=== PATIENT | male | born 1965 | race African-American/Black ===

== ENCOUNTER 2019-02-16 11:01 | Inpatient (IN) ==
[2019-02-16] MEDS ORDERED: PHENERGAN IM ONE (11:42)
[2019-02-16] MEDS ORDERED: NS 1,000 ML IV ONE (11:42)
[2019-02-16 12:33] LABS: BASO# 0.05 X1000 (0.0-0.2); BASO% 0.6 % (0.0-0.8); EOS# 0.06 X1000 (0.0-0.7); EOS% 0.7 % (0.0-10.0); HEMATOCRIT 45.8 % (42.0-52.0); HEMOGLOBIN 16.4 g/dL (14.0-18.0); IMM GRAN# 0.02 X1000 (0.0-0.04); IMM GRAN% 0.2 % (0.0-0.5); LYMPH# 1.97 X1000 (1.2-3.4); LYMPH% 22.2 % (20.5-51.1); MCH 32.2 PG (27-31); MCHC 35.8 g/dL (33-37); MONO# 0.92 X1000 (0.11-0.59); MONO% 10.3 % (1.7-9.3); MPV 9.7 FL (7.4-10.4); NEUT# 5.87 X1000 (1.4-6.5); PLT 226 X1000 (130-400); RBC 5.09 XMIL (4.7-6.1); RDW 12.6 % (11.5-14.5); WBC 8.89 X1000 (4.8-10.8)
[2019-02-16 12:34] LABS: URINE SOURCE VOIDED
[2019-02-16 12:47] LABS: BILIRUBIN URINE NEGATIVE (NEGATIVE); BLOOD URINE TRACE (NEGATIVE); COLOR YELLOW; GLUCOSE URINE NEGATIVE (NEGATIVE); KETONE URINE 20 mg/dL (NEGATIVE); LEUKOCYTES URINE NEGATIVE (NEGATIVE); NITRITE URINE NEGATIVE (NEGATIVE); PH URINE 6.5; PROTEIN URINE 50 mg/dL (NEGATIVE); SP GRAVITY URINE 1.035; TURBIDITY URINE CLEAR (CLEAR); UROBILINOGEN URINE 3 mg/dL (NORMAL)
[2019-02-16 12:50] LABS: UR EPITHELIAL CELLS <10 /HPF (<10); URINE BACTERIA NEGATIVE /HPF; URINE RBC <10 /HPF (<10); URINE WBC <10 /HPF (<10)
[2019-02-16 12:56] LABS: ALB/GLOB RATIO 1.4; ALBUMIN 4.6 g/dL (3.5-5.0); CALCIUM 9.8 mg/dL (8.8-10.2); CREATININE 2.2 mg/dL (0.7-1.2); POTASSIUM 4.1 mmol/L (3.5-5.1); TOTAL BILIRUBIN 0.57 mg/dL (0.20-1.00)
[2019-02-16 12:57] LABS: UR AMPHETAMINES QUAL NONE DETECTED (NONE DETECT); UR BARBITUATES QUAL NONE DETECTED (NONE DETECT); UR BENZODIAZEPIN QUAL NONE DETECTED (NONE DETECT); UR CANNABINOIDS QUAL PRESUMPTIVE POSITIVE (NONE DETECT); UR COCAINE QUAL PRESUMPTIVE POSITIVE (NONE DETECT); UR METHADONE QUAL NONE DETECTED (NONE DETECT); UR OPIATES QUAL NONE DETECTED (NONE DETECT); UR OXYCODONE QUAL NONE DETECTED (NONE DETECT); UR PCP QUAL NONE DETECTED (NONE DETECT)
--- NOTE | 2019-02-16 13:29 | PROVIDER DOCUMENTATION ---
This chart was entered by Sen Deleon Scribe, acting as scribe for Alpesh Brunson MD. HPI-Abdominal Pain/GI Problem - General Chief Complaint: Chest Pain Stated Complaint: CHEST PAIN,ULCERS,VOMITING Time Seen by Provider: 02/16/19 11:36 Source: patient Allergies/Adverse Reactions: Patient Allergies Allergy/AdvReac Type Severity Reaction Status Date / Time No Known Allergies Allergy Verified 10/12/18 09:40 Home Medications: Home Medication List Medication Instructions Recorded Confirmed Last Taken Type Gabapentin [Neurontin] 300 mg PO DAILY 04/30/18 10/12/18 10/05/18 History Hydralazine HCl 100 mg PO TID 04/30/18 10/12/18 10/05/18 History Pantoprazole [Protonix] 40 mg PO BID #60 tab 05/01/18 10/12/18 06/25/18 22:00 Rx Doxycycline 100 mg PO BID 7 Days #14 tab 10/12/18 Unknown Rx Omeprazole [Prilosec] 40 mg PO DAILY #14 capsule. 10/12/18 Unknown Rx Promethazine [Phenergan] 25 mg PO Q6H PRN PRN #20 tab 10/12/18 Unknown Rx Ondansetron HCl [Zofran] 8 mg PO TID PRN #21 tab 02/14/19 Unknown Rx - History of Present Illness-ABD Nature of Presenting Problems: Pt is a 53 y/o M presents to the ED with N/V for a few days and reports his chest has started to hurt today with some constipation for a couple days. He reports of a AAA repair. Abdominal Pain Onset Location: reports: LUQ Pain Radiation: reports: no radiation Quality of Pain: reports: aching Severity in ED: reports: moderate Onset/Duration: reports: 3 days ago Timing: reports: still present Activities at Onset: reports: none Exposure to sick contacts?: No Modifying Factors: improves with: nothing Associated Symptoms: reports: chest pain, constipation, nausea, vomiting. denies: cough, diaphoresis, diarrhea, fever/chills, loss of appetite, sinus congestion/drainage, shortness of breath Last BM: 3 days ago Review of Systems - Adult - REVIEW OF SYSTEMS - ADULT Constitutional: denies: chills, fever Eyes: reports: no symptoms reported Ears, Nose, Mouth & Throat: denies: ear pain, throat pain Cardiovascular: reports: chest pain. denies: edema, palpitations Respiratory: denies: cough, shortness of breath, wheezing Gastrointestinal: reports: abdominal pain, constipation, nausea, vomiting. denies: diarrhea Genitourinary: denies: dysuria, discharge Musculoskeletal: denies: back pain, neck pain Integumentary: reports: no symptoms reported Neurological: denies: dizziness/vertigo, headache/migraines Psychiatric: reports: no symptoms reported Endocrine: reports: no symptoms reported Hematologic/Lymphatic: reports: no symptoms reported Allergic/Immunologic: reports: no symptoms reported All Other Systems: Reviewed and Negative Past History - Adult - PAST MEDICAL HISTORY-ADULT Review of Records: reports: Old Records Reviewed, Nursing Assessment Review, Medications Reviewed Major Childhood Illnesses: reports: denies history Cardiovascular: reports: denies history Respiratory: reports: denies history Gastrointestinal: reports: denies history Obstetrical/Gynecological: reports: denies history Genitourinary: reports: denies history Musculoskeletal: reports: denies history Neurological: reports: denies history Psychiatric: reports: denies history Endocrine/Immune: reports: denies history Other Conditions: reports: denies history - PRIOR SURGERIES/PROCEDURES Surgical/Procedure History: reports: none - IMMUNIZATION STATUS Childhood Immunizations: See Nurse Assessment Flu Vaccine: See Nurse Assessment - FAMILY HISTORY Family History: reviewed, not pertinent - SOCIAL HISTORY Smoking: cigarettes, less than 1 pack/day Substance Use: alcohol Living Situation: family Physical Exam-General - PHYSICAL EXAM-ADULT Initial Vital Signs Reviewed: Yes - CONSTITUTIONAL General Appearance: alert, no apparent distress - EYES Eyes: PERRL/EOMI, pink conjunctivae - HEAD, EARS, NOSE, MOUTH & THROAT HENMT: moist mucous membranes, normal ENT inspection - NECK Neck: non-tender, full range of motion - RESPIRATORY Respiratory: no pleuratic chest pain, no respiratory distress, no accessory muscle use, wheezing (Left upper) - CARDIOVASCULAR Cardiovascular: normal peripheral pulses, regular rate, rhythm - GASTROINTESTINAL (ABDOMEN) Abdominal Exam: normal bowel sounds, soft, tenderness (LUQ), other (well healed abdominal scar). negative: distended, guarding, rebound - MUSCULOSKELETAL Back Exam: normal inspection, no CVA tenderness, no vertebral tenderness Extremity: normal range of motion, non-tender, normal gait, normal inspection, no pedal edema - SKIN Integumentary: normal color, normal turgor, warm/dry - NEUROLOGIC Neurologic: grossly normal, no motor/sensory deficits - PSYCHIATRIC Psych/Mental Status: normal mood/affect, normal thought content, normal thought process, oriented x 3 Progress - PLAN OF CARE/RESULTS Progress/Plan/Lab Results: Vital Signs - 8 hr 02/16/19 11:08 Pulse Rate 71 Respiratory Rate 22 Blood Pressure 142/98 O2 Sat by Pulse Oximetry 100 Result Diagrams: 02/16/19 12:12 02/16/19 12:12 - EKG 1 Time of EKG reading by physician:: 11:12 EKG Read and Signed by:: Alpesh Brunson EKG Interpretation (*Must complete 3 of following elements*): Abnormal Rate: 65 Rhythm: NSR with sinus arrhythmia [place]: left QRS: RBB (incomplete) Comments: pulmonary disease pattern - CONSULTS/PCP/HOSPITALIST Notification #1 *Consult/PCP/Hospitalist*: - Hospitalist - Spoke with Summer Time Discussed: 13:24 Reason/Comments: admission Consult Disposition: Will see in ED Departure - Departure Date of Disposition Decision: 02/16/19 Time of Disposition Decision: 13:24 DIAGNOSIS: Chest pain, Substance abuse, Renal insufficiency, Vomiting, CKD (chronic kidney disease) Disposition: ADMITTED INPATIENT Certified Medical Emergency: Emergent Condition: Fair Referrals and Follow-Ups: Kanwal Ross MD [Primary Care Provider] - - Critical Care Note This patient required my direct & personal management of CC.: No Attestation - Physician/ HOSSEIN Attestation Patient care was provided by Advanced Practice Provider:: No The physician spent face to face time with patient:: Yes Advanced Practice Provider documentation review:: Supervising physician onsite and consulted in the evaluation and care of this patient. The physician did have a face to face encounter with the patient. This chart was documented by the indicated scribe, (Sen Deleon Scribe) and accurately reflects the services I performed and decisions made by me, Alpesh Brunson MD, as attested by the provider's signature.
[2019-02-16] MEDS ORDERED: ZOFRAN IV ONE (14:40)
[2019-02-16] MEDS ORDERED: CARAFATE LIQUID PO ONE (14:40)
--- NOTE | 2019-02-16 14:51 | Diag Imaging Result Doc PS360 ---
EXAM: CT ABDOMEN/PELVIS W/O CONTRAST INDICATION: abdo pain, hx TECHNIQUE: This exam was performed using automated exposure control, adjustment of mA or kV according to patient size, and/or use of iterative reconstruction technique. COMPARISON: 04/28/2018 FINDINGS: There is stable mild scarring at the periphery of the left lung base. The left upper quadrant lateral ventral abdominal wall hernia that was seen on the previous study is much less prominent and may have been repaired during the interval. There is stable chronic fat opacification at the site of the hernia which probably represents scarring. The liver, gallbladder, spleen, pancreas, and adrenal glands are unremarkable. The left kidney is markedly atrophic. The right kidney is unremarkable. The urinary bladder is unremarkable. The appendix is normal. There is no focal bowel wall thickening and no evidence of bowel obstruction. The remainder of the GI tract is essentially unremarkable. There is moderate atherosclerotic calcification at the distal aorta. There are several metallic clips adjacent to the infrarenal aorta. There is no evidence of aortic aneurysm. No free abdominal gas or free fluid is identified. IMPRESSION: 1.Left upper quadrant lateral ventricle abdominal wall hernia containing only fat is much less prominent than the previous study suggesting possible interval repair. Please correlate with surgical history. 2.No evidence of recurrent abdominal aortic aneurysm. 3.Other incidental/nonacute findings detailed above. No definite acute pathology by CT. Electronically signed by Angel Guzmán 02/16/2019 2:49 PM
[2019-02-16] MEDS ORDERED: ZOFRAN IV PRN (15:02)
[2019-02-16] MEDS ORDERED: TYLENOL PO PRN (15:02)
[2019-02-16] MEDS ORDERED: PROTONIX IV ONE (15:11)
[2019-02-16] MEDS ORDERED: SODIUM CHLORIDE 0.9% INJ ONE (15:11)
[2019-02-16] MEDS: NS 1,000 ML IV SCH (16:27)
[2019-02-16 17:08] LABS: AMYLASE 111 U/L (20-200); LIPASE 28 U/L (13-60)
[2019-02-16 17:12] LABS: HEMOGLOBIN A1C 5.8 % (4.8-6.0)
--- NOTE | 2019-02-16 17:25 | Diag Imaging Result Doc PS360 ---
EXAM: CHEST-PORTABLE INDICATION: dyspnea TECHNIQUE: One view COMPARISON: 02/13/2019 FINDINGS: The lungs are grossly clear. There is no discrete pleural fluid collection or pneumothorax. The cardiomediastinal silhouette and central vasculature are grossly unremarkable. IMPRESSION: No evidence of acute pathology by plain radiograph. Electronically signed by Angel Guzmán 02/16/2019 5:22 PM
[2019-02-16] MEDS ORDERED: DULCOLAX PR SCH (21:00)
[2019-02-16] MEDS: DUONEB (A & A) INH SCH (21:45)
[2019-02-16] MEDS: MIRALAX PO SCH (22:55)
[2019-02-17] MEDS: DUONEB (A & A) INH SCH ×2 (03:40→08:09)
[2019-02-17] MEDS: NS 1,000 ML IV SCH (05:27)
[2019-02-17] MEDS: PROTONIX PO SCH ×2 (05:27→06:14)
[2019-02-17 07:35] LABS: BASO# 0.04 X1000 (0.0-0.2); BASO% 0.4 % (0.0-0.8); EOS# 0.18 X1000 (0.0-0.7); EOS% 1.9 % (0.0-10.0); HEMATOCRIT 43.6 % (42.0-52.0); HEMOGLOBIN 14.9 g/dL (14.0-18.0); LYMPH# 3.47 X1000 (1.2-3.4); LYMPH% 37.5 % (20.5-51.1); MCH 31.6 PG (27-31); MCHC 34.2 g/dL (33-37); MCV 92.4 FL (81-99); MONO# 1.05 X1000 (0.11-0.59); MONO% 11.3 % (1.7-9.3); MPV 9.6 FL (7.4-10.4); NEUT# 4.52 X1000 (1.4-6.5); NEUT% 48.9 % (42.2-75.2); PLT 213 X1000 (130-400); RBC 4.72 XMIL (4.7-6.1); RDW 12.7 % (11.5-14.5); WBC 9.26 X1000 (4.8-10.8)
[2019-02-17 07:57] LABS: ALB/GLOB RATIO 1.2; ALBUMIN 3.8 g/dL (3.5-5.0); CALCIUM 9.2 mg/dL (8.8-10.2); CREATININE 1.9 mg/dL (0.7-1.2); MAGNESIUM 2.1 mg/dL (1.5-2.7); POTASSIUM 3.7 mmol/L (3.5-5.1); TOTAL BILIRUBIN 0.61 mg/dL (0.20-1.00); TOTAL PROTEIN 6.9 g/dL (6.3-8.3)
[2019-02-17 07:58] LABS: CHOLESTEROL 117 mg/dL (0-200); HDL 42 mg/dL (35-55); LDL 56 mg/dL; TRIGLYCERIDES 96 mg/dL (39-160); VLDL 19 mg/dL
[2019-02-17 08:23] LABS: CK INDEX 1.2 (0.0-2.5); CK-MB 3.14 ng/mL (0.0-5.0)
--- NOTE | 2019-02-17 08:43 | HISTORY AND PHYSICAL ---
PRIMARY CARE PHYSICIAN: The patient states that he used to see DR. Reyes, but he currently has no primary care physician at this time. CHIEF COMPLAINT: Nausea and vomiting times 2 to 3 days. HISTORY OF THE PRESENT ILLNESS: This is a 53-year-old male, who is lying in ER stretcher in somewhat acute distress, vomiting while I am in the room. States that he started 2-3 days ago with vomiting and lots of nausea. States that he came to the ER on . They performed an abdominal x-ray, gave him some Protonix, and discharged him home. The patient states that he has continued to have nausea and vomiting, some dizziness. He has been coughing up some yellow thick sputum. Denies any fever. States that he has had some chills. The patient states that he has not had a bowel movement since Sunday. The abdominal x-ray done in the ER on 02/13/2019 showed that there was some stool in the rectum, and the patient states he has not had any bleeding when he vomited or any blood in his stool on Sunday. The patient is positive for peptic ulcer disease that was diagnosed several years back when he had an EGD in [place]. The patient in 2018 also had AAA repair and subsequently had to receive dialysis for several months after his AAA repair. Laboratory findings today in the ER show creatinine of 2.2. CT of the abdomen and pelvis shows a repair of an abdominal hernia. Does not show any abdominal aortic aneurysm, and no other acute pathology noted. Urine drug screen was done, and patient was positive for marijuana and cocaine. The patient does admit to using marijuana and cocaine. Abdomen is tender to the touch. Bowel sounds are present. The patient is actively vomiting while I am in the room. This is mostly a mucus type vomit. Did not notice any bile or anything in the vomit. There are audible wheezes noted throughout all lung amato. The patient denies any history of COPD or asthma or emphysema. The patient does state that he does smoke occasionally 3 or 4 cigarettes a week. There are no other pertinent findings at this time. PAST MEDICAL HISTORY: Peptic ulcer disease, history of drug abuse, GERD, aneurysm repair, and hernia repair. PAST SURGICAL HISTORY: Aneurysm repair at [facility] in 2017 where he subsequently went into acute kidney failure and had to receive dialysis for several months post repair, hernia repair, EGD, and colonoscopy. FAMILY HISTORY: Not specific. SOCIAL HISTORY: The patient lives in [place] with his . States he does smoke 2 to 3 cigarettes a day . He is positive for cocaine and marijuana abuse. Patient does admit to this use. Denies any alcohol abuse. Patient does state occasionally he does drink a beer, but not daily. ALLERGIES: No known drug allergies. MEDICATIONS: The patient states he does take Protonix and aspirin. There is no medication reconciliation done in the computer. Unable to see dosages. DIAGNOSTIC STUDIES: White blood cell count 8.89, hemoglobin 16.4, hematocrit 45.8, platelet count 226,000. Sodium 136, potassium 4.1, chloride 97, BUN 19, creatinine 2.2, GFR is 38, glucose is 139, total bilirubin is 0.57, AST is 32, ALT is 27, alkaline phosphatase is 98. Troponin 0.01. Urinalysis is negative except for some protein and ketones. Urine toxicology is positive for cocaine and cannabinoids. Abdominal x-ray done on 02/13/2019 shows some stool in the rectum. The stomach and bowel are not distended. There is blunting of the left costophrenic angle, which has not been changed and is presumably due to fibrosis. CT of the abdomen and pelvis shows left upper quadrant, left ventricle, abdominal wall hernia containing only fat and much less prominent than the previous study suggesting interval repair. No evidence of recurrent abdominal aortic aneurysm. PHYSICAL EXAMINATION: VITAL SIGNS: Pulse rate 71, respiratory rate 22, blood pressure 142/98, the patient is saturating 100% on room air. GENERAL: This is a 53-year-old male who is lying in the ER stretcher in somewhat acute distress from vomiting of mucus while I am in the room. He is able to answer questions appropriately. Keeps having to thrash around in the bed and states he is hurting and having nausea. HEENT: Atraumatic, normocephalic. Pupils equal, round, and reactive to light. Mucous membranes are dry. No dentition noted. NECK: Supple. No lymphadenopathy. Trachea is midline. No JVD. CARDIOVASCULAR: Regular rate and rhythm. No murmurs, gallops, or rubs. RESPIRATORY: Lungs sounds were noted to have wheezing all throughout. Equal chest expansion. Respirations are nonlabored. There is no accessory muscle usage. GASTROINTESTINAL: Abdomen is soft and tender to palpation. Bowel sounds are present. NEUROLOGICAL: The patient is awake, alert, and oriented, able to follow all commands. Cranial nerves intact. MUSCULOSKELETAL: Full distal strength noted. No deformities or abnormalities. EXTREMITIES: No clubbing or cyanosis or edema noted. DP and PT pulses are present and palpable. SKIN: Warm, dry, intact. No rashes or bruises. There is a scar noted to the lower left leg. The patient states this is from his aorta repair. IMPRESSION: 1. Nausea and vomiting and abdominal pain. 2. Peptic ulcer disease. 3. Abdominal aortic aneurysm repair, 2018. 4. Drug abuse. 5. Nicotine dependence. PLAN: We will admit this patient to the medical floor. Place patient on Protonix and IV fluids for possible dehydration. Start the patient on Zofran IV for nausea. We will provide education on smoking cessation and cessation of drug abuse. We will perform chest x-ray and start the patient on breathing treatments every 4 hours. We will monitor the patient for signs and symptoms of infection and draw a.m. labs. Dictated by MALCOLM Kurtz for Sohan Hearn MD cc: Sohan Hearn MD
[2019-02-17 08:50] LABS: LYMPHS 32 % (21-51); MONO 12 % (1-9); SEGS 48 % (42-75)
[2019-02-17 08:52] LABS: HYPOCHROM 1+
[2019-02-17] MEDS ORDERED: ASPIRIN PO SCH (09:00)
--- NOTE | 2019-02-17 09:52 | EKG Report ---
Test Performed on : 02/16/2019 11:12:26 AM Test Reason : ED. NO EKG ORDER FOR MUSE Blood Pressure : / mmHG Vent. Rate : 065 BPM Atrial Rate : 065 BPM P-R Int : 152 ms QRS Dur : 094 ms QT Int : 380 ms P-R-T Axes : 080 -55 041 degrees QTc Int : 395 ms Normal sinus rhythm. with sinus arrhythmia. Left axis deviation Pulmonary disease pattern Incomplete right bundle branch block Abnormal ECG When compared with ECG of 13-FEB-2019 20:48, (Unconfirmed) Non-specific change in ST segment in Lateral leads T wave amplitude has decreased in Anterior leads Nonspecific T wave abnormality no longer evident in Lateral leads Unconfirmed Result
[2019-02-17] MEDS: MIRALAX PO SCH (09:55)
[2019-02-17 12:43] VITALS: BP 121/75
--- NOTE | 2019-02-18 13:45 | DISCHARGE SUMMARY ---
ADMISSION DATE: 02/16/2019 DISCHARGE DATE: 02/17/2019 DISCHARGE DIAGNOSES: 1. Nausea and vomiting resolved. 2. Abdominal pain resolved. 3. Peptic ulcer disease. 4. Abdominal aortic aneurysm repair in 2018. 5. Drug abuse. 6. Nicotine dependence. PROCEDURES: Abdomen and pelvis CT showed left upper quadrant lateral ventricle abdominal wall hernia containing only fat. No evidence of recurrent abdominal aortic aneurysm. X-ray done yesterday showed no evidence of acute pathology. HOSPITAL COURSE: This is a 53-year-old male, who presents to the emergency department complaining of vomiting and abdominal pain. He reports that pain started 3 days ago. He was admitted to the hospital. He was provided Protonix IV. We have done so far a CT of the abdomen and pelvis where left upper quadrant lateral ventricle abdominal wall hernia containing only fat. No evidence of recurrent abdominal aortic aneurysm. So patient was admitted to the hospital. He reports that for the last 2 to 3 months he has not been taking his omeprazole. He was taking omeprazole 40 mg b.i.d. for an ulcer but he is not taking anything because he ran out of this medication. We have restarted that medication here and next day he was feeling much better. He is going to be discharged in stable condition. He is recommended to go and see his primary care physician. DISCHARGE PHYSICAL EXAMINATION: Vital signs: Temperature 98.1 degrees, heart rate 64, respiratory rate 18, blood pressure 121/75. O2 saturation 100% on room air. General: This is a 53-year-old female lying in bed, in no acute distress. Cardiovascular: S1, S2 heard. No murmurs, gallops, or rubs. Regular rate and rhythm. Respiratory: Clear bilaterally to auscultation. No work of breathing or using accessory muscles. Abdomen: Soft, nontender to palpation. Bowel sounds present. No organomegaly. Extremities: No clubbing, cyanosis, or edema. Peripheral pulses present in both legs. Neurological: Patient alert and oriented x3. Moves 4 extremities. DISCHARGE DISPOSITION: 1. Home to self-care. 2. Medications: omeprazole 40 mg p.o. daily. DISCHARGE DISPOSITION: Follow up with primary care doctor in a week. cc: Tarik Pinedo MD
== END 2019-02-17 14:22 | disposition home or self-care (01) | DRG 384 ==
LOC: ED 11:01 → 3N 11:01 → SUATTDRO 16:29 → OBSVTOIN 16:29
PROVIDERS: ATTEND Internal Medicine
CPT/HCPCS: 71010; 71045; 74176; 80053; 80061; 80101; 80301; 80307; 80324; 80345; 80346; 80353; 80358; 80361; 80365; 81001; 82150; 82550; 82553; 83036; 83690; 83735; 83992; 84484; 85025; 93005; 94640; 94761; 96361; 96372; 96374; 96375; 99285; A9270; C9113; G0431; G0434; G0479; G0480; J2405; J2550; J7030; S0164

== ENCOUNTER 2019-10-06 18:51 | Inpatient (IN) ==
[2019-10-06 21:19] LABS: URINE SOURCE CLEAN CATCH
[2019-10-06 21:32] LABS: BILIRUBIN URINE NEGATIVE (NEGATIVE); BLOOD URINE SMALL (NEGATIVE); COLOR YELLOW; GLUCOSE URINE NEGATIVE (NEGATIVE); KETONE URINE 40 mg/dL (NEGATIVE); LEUKOCYTES URINE NEGATIVE (NEGATIVE); NITRITE URINE NEGATIVE (NEGATIVE); PH URINE 8.5; PROTEIN URINE 200 mg/dL (NEGATIVE); SP GRAVITY URINE 1.037; TURBIDITY URINE CLEAR (CLEAR); UROBILINOGEN URINE NORMAL (NORMAL)
[2019-10-06 21:39] LABS: UR EPITHELIAL CELLS <10 /HPF (<10); URINE BACTERIA NEGATIVE /HPF; URINE CASTS NONE SEEN; URINE CRYSTALS NONE SEEN; URINE RBC <10 /HPF (<10); URINE SMALL ROUND CELLS NONE SEEN; URINE WBC <10 /HPF (<10); URINE YEAST NONE SEEN
[2019-10-06 21:39] LABS: BASO# 0.08 X1000 (0.0-0.2); BASO% 0.4 % (0.0-0.8); EOS# 0.01 X1000 (0.0-0.7); EOS% 0.1 % (0.0-10.0); HEMATOCRIT 44.2 % (42.0-52.0); HEMOGLOBIN 15.1 g/dL (14.0-18.0); IMM GRAN# 0.08 X1000 (0.0-0.04); IMM GRAN% 0.4 % (0.0-0.5); LYMPH# 1.37 X1000 (1.2-3.4); MCH 31.6 PG (27-31); MCHC 34.2 g/dL (33-37); MCV 92.5 FL (81-99); MONO# 1.16 X1000 (0.11-0.59); MONO% 5.9 % (1.7-9.3); MPV 9.9 FL (7.4-10.4); NEUT# 16.96 X1000 (1.4-6.5); NEUT% 86.2 % (42.2-75.2); PLT 239 X1000 (130-400); RBC 4.78 XMIL (4.7-6.1); RDW 12.9 % (11.5-14.5); WBC 19.66 X1000 (4.8-10.8)
[2019-10-06 21:53] LABS: ALB/GLOB RATIO 0.7; ALBUMIN 3.8 g/dL (3.5-5.0); CALCIUM 10.3 mg/dL (8.8-10.2); CREATININE 1.9 mg/dL (0.7-1.2); POTASSIUM 3.5 mmol/L (3.5-5.1); TOTAL BILIRUBIN 0.64 mg/dL (0.20-1.00)
[2019-10-06] MEDS ORDERED: ZOFRAN ODT PO ONE (22:16)
[2019-10-06] MEDS ORDERED: ZOFRAN ODT ONE (22:21)
[2019-10-06] MEDS ORDERED: ZOSYN 4.5 GM in NS 100 ML IV ONE (22:33)
[2019-10-06] MEDS ORDERED: NS 1,000 ML IV ONE ×2 (22:40→22:41)
[2019-10-06] MEDS ORDERED: ZOFRAN PO ONE (23:56)
--- NOTE | 2019-10-07 01:16 | PROVIDER DOCUMENTATION ---
This chart was entered by Daniela Hartmann Scribe, acting as scribe for Bandar Rocha MD. HPI-General Adult - General Chief Complaint: Nausea/Vomiting Stated Complaint: N/V Time Seen by Provider: 10/06/19 22:08 Source: patient Allergies/Adverse Reactions: Patient Allergies Allergy/AdvReac Type Severity Reaction Status Date / Time No Known Allergies Allergy Verified 10/07/19 00:51 Home Medications: Home Medication List Medication Instructions Recorded Confirmed Last Taken Type Gabapentin [Neurontin] 300 mg PO DAILY PRN 04/30/18 10/07/19 08/11/19 History Albuterol Sulfate Inhaler 2 puff INH Q4H PRN PRN #1 inhaler 02/17/19 10/07/19 08/17/19 Rx [Ventolin Hfa] Cetirizine [Zyrtec] 10 mg PO DAILY #20 tab 07/01/19 10/07/19 08/16/19 Rx Cyclobenzaprine [Flexeril] 10 mg PO TID #20 tab 07/01/19 10/07/19 08/11/19 Rx Fluticasone 50 Mcg Nasal [place] 1 spray INTRANASAL DAILY #1 bottle 08/18/19 10/07/19 Unknown Rx [Flonase] - History of Present Illness -Gen Adult Nature of Presenting Problems: pt is a 53 yr old male presenting with 1 day complaint of nausea, vomiting, abdominal pain and back pain. pt was seen here yesterday and dx as pneumonia. pt denies any shortness of breath, cough or chest pain. pt is actively vomiting during exam Location of Pain/Injury: reports: abdomen, back Pain Radiation: reports: no radiation Quality of Pain: reports: aching Severity: reports: moderate Onset/Duration: reports: this morning (n/v) Timing: reports: still present Context/Activities at Onset: reports: rest Modifying Factors: improves with: nothing Associated Symptoms: reports: back/neck pain, nausea, vomiting. denies: chest pain, diarrhea, fever/chills, genitourinary problems, shortness of breath Similar Symptoms Previously?: Yes Recently seen or treated by another doctor?: Yes (seen here 1 day ago, dx as PNA) Review of Systems - Adult - REVIEW OF SYSTEMS - ADULT Constitutional: reports: fatique. denies: chills, fever Eyes: reports: no symptoms reported Ears, Nose, Mouth & Throat: denies: ear pain, sinus problem, throat pain Cardiovascular: denies: chest pain, palpitations, syncope Respiratory: denies: cough, shortness of breath Gastrointestinal: reports: abdominal pain, nausea, vomiting. denies: diarrhea Genitourinary: reports: no symptoms reported Musculoskeletal: reports: back pain Integumentary: reports: no symptoms reported Neurological: denies: dizziness/vertigo, headache/migraines Psychiatric: reports: no symptoms reported Endocrine: reports: no symptoms reported Hematologic/Lymphatic: reports: no symptoms reported Allergic/Immunologic: reports: no symptoms reported All Other Systems: Reviewed and Negative Past History - Adult - PAST MEDICAL HISTORY-ADULT Review of Records: reports: Old Records Reviewed, Nursing Assessment Review, Medications Reviewed, Social history reviewed & non-contributory. Major Childhood Illnesses: reports: denies history Cardiovascular: reports: HTN Respiratory: reports: denies history Gastrointestinal: reports: denies history Obstetrical/Gynecological: reports: denies history Genitourinary: reports: dialysis (no longer on dialysis, hx of renal insufficiency) Musculoskeletal: reports: denies history Neurological: reports: denies history Psychiatric: reports: denies history Endocrine/Immune: reports: denies history Other Conditions: reports: denies history - PRIOR SURGERIES/PROCEDURES Surgical/Procedure History: reports: none - IMMUNIZATION STATUS Childhood Immunizations: See Nurse Assessment Flu Vaccine: See Nurse Assessment - FAMILY HISTORY Family History: reviewed, not pertinent - SOCIAL HISTORY Smoking: cigarettes Provider spent 3-5 mins advising pt. on dangers of tobacco.: Discussed manners to quit use, and f/u contacts for add'l counseling. Substance Use: alcohol Alcohol Use Frequency: occasionally Living Situation: family Physical Exam-General - PHYSICAL EXAM-ADULT Initial Vital Signs Reviewed: Yes - CONSTITUTIONAL General Appearance: appears well, alert, no apparent distress - EYES Eyes: PERRL/EOMI - HEAD, EARS, NOSE, MOUTH & THROAT HENMT: normocephalic/atraumatic, moist mucous membranes, normal ENT inspection - NECK Neck: non-tender, full range of motion, supple, normal inspection - RESPIRATORY Respiratory: chest non-tender, lungs clear, normal breath sounds, no respiratory distress, no accessory muscle use - CARDIOVASCULAR Cardiovascular: normal peripheral pulses, regular rate, rhythm, no edema - GASTROINTESTINAL (ABDOMEN) Abdominal Exam: normal bowel sounds, non tender, soft - LYMPHATIC Lymphatic: no adenopathy - MUSCULOSKELETAL Back Exam: normal inspection, no CVA tenderness, no vertebral tenderness Extremity: normal range of motion, non-tender, normal gait, normal inspection - SKIN Integumentary: normal color, normal turgor, warm/dry - NEUROLOGIC Neurologic: grossly normal, no motor/sensory deficits - PSYCHIATRIC Psych/Mental Status: normal mood/affect, normal thought content, normal thought process, oriented x 3 Progress - PLAN OF CARE/RESULTS Progress/Plan/Lab Results: Vital Signs - 8 hr 10/06/19 19:18 10/06/19 21:04 Temperature 98.0 F 98.3 F Pulse Rate 87 83 Respiratory Rate 18 20 Blood Pressure 141/85 156/90 O2 Sat by Pulse Oximetry 99 100 Laboratory Results - last 24 hr 10/06/19 10/06/19 10/06/19 21:02 21:02 21:06 WBC 19.66 H RBC 4.78 Hgb 15.1 Hct 44.2 MCV 92.5 MCH 31.6 H MCHC 34.2 RDW Std Deviation 12.9 Plt Count 239 MPV 9.9 Immature Gran % (Auto) 0.4 Neut % (Auto) 86.2 H Lymph % (Auto) 7.0 L [place] % (Auto) 5.9 Eos % (Auto) 0.1 Baso % (Auto) 0.4 Immature Gran # (Auto) 0.08 H Neut # (Auto) 16.96 H Lymph # (Auto) 1.37 [place] # (Auto) 1.16 H Eos # (Auto) 0.01 Baso # (Auto) 0.08 Sodium 140 Potassium 3.5 Chloride 99 Carbon Dioxide 24 L Anion Gap 17 BUN 25 H D Creatinine 1.9 H Estimated GFR/1.73 m2 45 BUN/Creatinine Ratio 13 Glucose 143 H Calculated Osmolality 286 Calcium 10.3 H Total Bilirubin 0.64 AST 18 ALT 19 Alkaline Phosphatase 99 Total Protein 9.0 H Albumin 3.8 Globulin 5.2 Albumin/Globulin Ratio 0.7 Amylase 80 Lipase 14 Urine Source CLEAN CATCH Urine Color YELLOW Urine Turbidity CLEAR Urine pH 8.5 Ur Specific [place] 1.037 Urine Protein 200 A Ur Glucose (Stick) NEGATIVE Ur Ketones (Stick) 40 A Urine Blood SMALL A Urine Nitrite NEGATIVE Urine Bilirubin NEGATIVE Urobilinogen Dipstick NORMAL Urine Leukocytes NEGATIVE Urine WBC (Auto) <10 Urine RBC (Auto) <10 U Epithel Cells (Auto) <10 Urine Bacteria (Auto) NEGATIVE Urine Crystals NONE SEEN Small Round Cells NONE SEEN Urine Casts NONE SEEN Urine Yeast-like Cells NONE SEEN Orders Category Date Time Status Saline Loc DIRECTED Care 10/06/19 19:36 Active NPO Diet 10/06/19 19:36 Active cxr [CHEST-1 VIEW] [RAD] Stat Exams 10/06/19 22:12 Taken AMYLASE [CHEM] Stat Lab 10/06/19 21:02 Completed BLOOD CULTURE [BLDCUL] Stat Lab 10/06/19 22:33 Ordered CBC WITH ELECTRONIC DIFF [HEME] Stat Lab 10/06/19 21:02 Completed COMPREHENSIVE METABOLIC PANEL [CHEM] Stat Lab 10/06/19 21:02 Completed LACTATE, PLASMA [CHEM] Stat Lab 10/06/19 22:33 Uncollected LIPASE [CHEM] Stat Lab 10/06/19 21:02 Completed URINALYSIS W/POSS RFLX CULT [URINALYSIS] Stat Lab 10/06/19 21:06 Completed URINE MANUAL MICROSCOPIC [URINALYSIS] Stat Lab 10/06/19 21:06 Completed 0.9% Sodium Chloride Inj [Ns] 1,000 ml Med 10/06/19 22:40 Active IV 999 mls/hr 0.9% Sodium Chloride Inj [Ns] 1,000 ml Med 10/06/19 22:41 Active IV 999 mls/hr Ondansetron Odt [Zofran Odt] Med 10/06/19 22:21 Discontinued 4 mg .ROUTE .STK-MED ONE Ondansetron Odt [Zofran Odt] Med 10/06/19 22:16 Discontinued 4 mg PO NOW ONE Piperacillin/Tazobactam [Zosyn] 4.5 gm Med 10/06/19 22:33 Active 0.9% Sodium Chloride Inj [Ns] 100 ml IV NOW Reviewed records from yesterday with CT abd/pel showing right lower lobe pneumonia. Given IV fluids with normal saline and zosyn. Noted benign lactic acid with blood cultures x 2 drawn. Overall, x-ray and urinalysis benign. Patien t with nausea and vomiting improved s/p zofran and phenergan. He is improved at this time. Noted leukocytosis with left shift and no recent steroid use. Discussed case with hospitalist Dr. Cervantes, who agreed to admit the patient for bacterial pneumonia. No supplemental O2 requirement currently. Stable for floor. HD stable overall. Solitary kidney with noted chronic kidney disease. Result Diagrams: 10/06/19 21:02 10/06/19 21:02 - XRAY 1 XRAY Study: Chest Impression: Normal, See EMR Report Departure - Departure Date of Disposition Decision: 10/07/19 Time of Disposition Decision: 01:14 DIAGNOSIS: Right lower lobe pneumonia, Nausea and vomiting, Leukocytosis, CKD (chronic kidney disease) Disposition: ADMITTED INPATIENT 09 Certified Medical Emergency: Emergent Condition: Fair Referrals and Follow-Ups: Brittany Hoffman MD [Primary Care Provider] - - Critical Care Note This patient required my direct & personal management of CC.: No Attestation - Physician/ HOSSEIN Attestation Patient care was provided by Advanced Practice Provider:: No The physician spent face to face time with patient:: Yes Advanced Practice Provider documentation review:: Supervising physician onsite and consulted in the evaluation and care of this patient. The physician did have a face to face encounter with the patient. This chart was documented by the indicated scribe, (Daniela Hartmann Scribe) and accurately reflects the services I performed and decisions made by me, Bandar Rocha MD, as attested by the provider's signature.
[2019-10-07] MEDS ORDERED: TYLENOL PO PRN (02:24)
[2019-10-07] MEDS ORDERED: SODIUM CHLORIDE 0.9% INJ SCH (02:24)
[2019-10-07] MEDS: PROTONIX IV SCH (05:06)
[2019-10-07] MEDS: NS 1,000 ML IV SCH ×2 (05:06→13:10)
[2019-10-07] MEDS: ZOSYN 3.375 GM in NS 50 ML IV SCH ×5 (05:06→22:42)
[2019-10-07] MEDS: ZOFRAN IV PRN (05:07)
--- NOTE | 2019-10-07 06:19 | HISTORY AND PHYSICAL ---
PRIMARY CARE PHYSICIAN: None. CHIEF COMPLAINT: Nausea, vomiting, fever, chills. HISTORY OF PRESENTING ILLNESS: A 53-year-old male with a history of peptic ulcer disease and GERD, who is a poor historian, who had presented to the emergency department with complaints of having fever, chills, nausea and vomiting that was intractable. The patient states that he was not feeling well and had returned back to emergency department. As per the patient he was seen the previous day at the ER emergency room and was diagnosed with pneumonia and sent home with some antibiotics. However, he states that he could not keep anything down and subsequently had come back to the ED. He was seen in the ED and due to his persistent nausea, vomiting and suspected pneumonia it was thought that he would need admission for further management. At the time of my examination the patient denied any headache, chest pain, hemoptysis or any weight changes, but complained of nausea, vomiting, coughing and not feeling well. PAST MEDICAL HISTORY: Includes peptic ulcer disease, GERD. PAST SURGICAL HISTORY: Aneurysm repair, hernia repair. ALLERGIES: No known drug allergies. CURRENT MEDICATIONS: He does not recall and nursing staff will reconcile. SOCIAL HISTORY: Twenty pack year history of smoking. Admits to alcohol use socially. History of cocaine use in the past. FAMILY HISTORY: No history of coronary disease. REVIEW OF SYSTEMS: Fourteen point review of systems are as listed in HPI. Other systems negative. PHYSICAL EXAMINATION: GENERAL: A cooperative male. He is resting comfortably now. VITAL SIGNS: Temperature 98.3 degrees, pulse 82, respirations 20, blood pressure 156/90. HEENT: Atraumatic, normocephalic. Extraocular movements intact. PERRLA. NECK: No masses. CHEST: Rhonchi. CARDIOVASCULAR: Regular rate and rhythm. ABDOMEN: Soft. Positive bowel sounds. EXTREMITIES: No edema. NEUROLOGIC: He is awake, alert and oriented x2. : No bladder distention. SKIN: Warm. LABORATORY STUDIES: WBC is 19.66, hemoglobin is 15.1, hematocrit 44.2, platelets 239,000. Sodium 140, potassium 3.5, chloride 99, CO2 is 24, BUN is 25, creatinine is 1.9, glucose is 143. The patient had a CT yesterday done which did show bronchopneumonia. ASSESSMENT: This is a 53-year-old male with a history of peptic ulcer disease and GERD who had presented to emergency department with several days history of having fever, chills and intractable nausea and vomiting. He was initially seen yesterday and sent home with antibiotics for suspicion of pneumonia. He returns back again due to persistent symptoms of nausea and vomiting. Subsequently he will require admission for further management. ASSESSMENT: 1. Suspected pneumonia. 2. Intractable nausea and vomiting. 3. Peptic ulcer disease. PLAN: 1. We will admit the patient to medical floor. 2. We will check blood cultures and start the patient on IV antibiotics. 3. We will continue with antiemetics and gentle hydration. 4. We will start the patient on a PPI. 5. We will put the patient on DVT prophylaxis with SCDs. 6. We will continue to follow, reassess and make further recommendations based on the patient's clinical course. cc: Karan Cervantes MD
--- NOTE | 2019-10-07 06:28 | Diag Imaging Result Doc PS360 ---
CHEST-1 VIEW - 10/06/2019 INDICATION: pneumonia COMPARISON: 10/05/2019 FINDINGS: The lungs are normally expanded and clear. Heart size and mediastinal contours are normal. No pneumothorax or pleural effusion. IMPRESSION: Negative exam. Electronically signed by Fran Carey 10/07/2019 6:26 AM
[2019-10-07 09:15] LABS: BASO# 0.11 X1000 (0.0-0.2); BASO% 0.6 % (0.0-0.8); EOS# 0.01 X1000 (0.0-0.7); EOS% 0.1 % (0.0-10.0); HEMATOCRIT 40.4 % (42.0-52.0); HEMOGLOBIN 13.6 g/dL (14.0-18.0); IMM GRAN# 0.08 X1000 (0.0-0.04); IMM GRAN% 0.4 % (0.0-0.5); LYMPH# 1.83 X1000 (1.2-3.4); LYMPH% 10.3 % (20.5-51.1); MCH 31.8 PG (27-31); MCHC 33.7 g/dL (33-37); MCV 94.4 FL (81-99); MONO% 7.9 % (1.7-9.3); MPV 9.9 FL (7.4-10.4); NEUT# 14.37 X1000 (1.4-6.5); NEUT% 80.7 % (42.2-75.2); PLT 233 X1000 (130-400); RBC 4.28 XMIL (4.7-6.1); RDW 12.9 % (11.5-14.5)
[2019-10-07 10:15] LABS: CREATININE 1.9 mg/dL (0.7-1.2)
[2019-10-08] MEDS: ZOSYN 3.375 GM in NS 50 ML IV SCH ×4 (03:32→21:29)
[2019-10-08] MEDS: NS 1,000 ML IV SCH ×2 (03:34→03:58)
[2019-10-08] MEDS: PROTONIX IV SCH ×2 (03:36→16:12)
[2019-10-08 05:20] LABS: BASO# 0.08 X1000 (0.0-0.2); BASO% 0.8 % (0.0-0.8); EOS# 0.07 X1000 (0.0-0.7); EOS% 0.7 % (0.0-10.0); HEMOGLOBIN 12.9 g/dL (14.0-18.0); IMM GRAN# 0.03 X1000 (0.0-0.04); IMM GRAN% 0.3 % (0.0-0.5); LYMPH# 2.57 X1000 (1.2-3.4); LYMPH% 24.9 % (20.5-51.1); MCH 31.4 PG (27-31); MCHC 33.1 g/dL (33-37); MCV 94.9 FL (81-99); MONO# 1.01 X1000 (0.11-0.59); MONO% 9.8 % (1.7-9.3); MPV 9.8 FL (7.4-10.4); NEUT# 6.57 X1000 (1.4-6.5); NEUT% 63.5 % (42.2-75.2); PLT 236 X1000 (130-400); RBC 4.11 XMIL (4.7-6.1); WBC 10.33 X1000 (4.8-10.8)
[2019-10-08 05:54] LABS: ALB/GLOB RATIO 0.8; CALCIUM 8.5 mg/dL (8.8-10.2); CREATININE 1.8 mg/dL (0.7-1.2); POTASSIUM 3.7 mmol/L (3.5-5.1); TOTAL BILIRUBIN 0.73 mg/dL (0.20-1.00); TOTAL PROTEIN 6.6 g/dL (6.3-8.3)
--- NOTE | 2019-10-08 07:31 | PROGRESS NOTE ---
DATE: 10/08/2019 SUBJECTIVE: Patient reports still feeling mildly nauseated but much better in comparing with yesterday. He denies any fever, chills, or shortness of breath. He is able to walk around. OBJECTIVE: Vital Signs: Temperature 98.0 degrees, heart rate 65, respiratory rate 18, blood pressure 155/77, O2 saturation 100% on room air. General Examination: This is a 53-year-old, -[place] male, lying in bed, in no acute distress. Cardiovascular Examination: S1 and S2 heard. No murmurs, gallops, or rubs. Regular rate and rhythm. Respiratory Examination: Rhonchi is noted in both pulmonary bases. Patient is not using any accessory muscles or having work of breathing. Abdomen: Soft, nontender to palpation. Bowel sounds present. No organomegaly. Extremities: No clubbing, cyanosis, or edema. Peripheral pulses present in both legs. Neurological Examination: The patient is alert and oriented x3. Moves 4 extremities. Laboratory Data: White cell count 10.52. ASSESSMENT AND PLAN: 1. Right middle lobe bronchopneumonia, with current antibiotics. White cell count is back to normal. The patient is not requiring any oxygen supplementation and not spiking any fever. At this point, we will continue to monitor this patient closely. 2. Intractable nausea and vomiting, secondary to gastritis. We will continue with Protonix and we will add sucralfate to his current treatment. 3. Disposition. We will continue to monitor this patient closely. cc: MD Karan Delcid MD
[2019-10-08] MEDS: CARAFATE LIQUID PO SCH ×3 (08:26→21:29)
[2019-10-08] MEDS: ZOFRAN IV PRN (08:26)
--- NOTE | 2019-10-08 10:17 | Diag Imaging Result Doc PS360 ---
US ABDOMEN-COMPLETE - 10/07/2019 INDICATION: abdominal pain COMPARISON: CT from 10/05/2019 FINDINGS: The left kidney is surgically absent. The liver, gallbladder, spleen, pancreas, and right kidney are normal. Common bile duct measures 4 mm. Aorta, IVC, and main portal vein are patent. Spleen size is 8.2 x 3.5 cm. IMPRESSION: Negative exam. Electronically signed by Fran Carey 10/08/2019 10:15 AM
[2019-10-08] MEDS ORDERED: MYLICON PO PRN (12:21)
--- NOTE | 2019-10-08 20:04 | ECHO REPORT ---
ORDER DATE: 10/08/2019 INDICATION: Ventricular tachycardia. FINDINGS: 1. The right atrium appears normal in size. 2. Mild tricuspid regurgitation. RV systolic pressure of 22. 3. Normal RV size and systolic function. 4. No significant pulmonic insufficiency. 5. Normal left atrial size with a dimension of 3.1 cm. 6. No mitral valve prolapse. Mild mitral regurgitation. No mitral stenosis. 7. Normal LV size, end-diastolic dimension of 4.5 cm. Normal wall thicknesses with a posterior and interventricular septal wall thickness of 1 cm each. Normal LV systolic function. Estimated EF of 55% with normal wall motion. 8. Aortic valve opens well. There is trace insufficiency, no stenosis. 9. Aorta appears normal in visualized segments. 10. No pericardial effusion seen. 11. Normal diastolic function. cc: MD Tarik Salomon MD Lloyd James, MD
[2019-10-09] MEDS: CARAFATE LIQUID PO SCH ×2 (02:36→09:56)
[2019-10-09] MEDS: PROTONIX IV SCH (03:36)
[2019-10-09 05:29] LABS: BASO# 0.03 X1000 (0.0-0.2); BASO% 0.4 % (0.0-0.8); EOS# 0.11 X1000 (0.0-0.7); EOS% 1.3 % (0.0-10.0); HEMATOCRIT 37.8 % (42.0-52.0); HEMOGLOBIN 12.4 g/dL (14.0-18.0); LYMPH# 3.33 X1000 (1.2-3.4); LYMPH% 39.5 % (20.5-51.1); MCH 31.6 PG (27-31); MCHC 32.8 g/dL (33-37); MCV 96.4 FL (81-99); MONO# 1.12 X1000 (0.11-0.59); MONO% 13.3 % (1.7-9.3); MPV 9.7 FL (7.4-10.4); NEUT# 3.85 X1000 (1.4-6.5); NEUT% 45.5 % (42.2-75.2); PLT 218 X1000 (130-400); RBC 3.92 XMIL (4.7-6.1); RDW 12.7 % (11.5-14.5); WBC 8.44 X1000 (4.8-10.8)
[2019-10-09] MEDS: ZOSYN 3.375 GM in NS 50 ML IV SCH (05:37)
[2019-10-09 06:15] LABS: ALB/GLOB RATIO 0.9; ALBUMIN 3.1 g/dL (3.5-5.0); CALCIUM 8.9 mg/dL (8.8-10.2); CREATININE 1.9 mg/dL (0.7-1.2); POTASSIUM 3.5 mmol/L (3.5-5.1); TOTAL BILIRUBIN 0.57 mg/dL (0.20-1.00); TOTAL PROTEIN 6.4 g/dL (6.3-8.3)
[2019-10-09 08:02] VITALS: BP 151/74
--- NOTE | 2019-10-09 10:11 | DISCHARGE SUMMARY ---
ADMISSION DATE: 10/06/2019 DISCHARGE DATE: 10/09/2019 DISCHARGE DIAGNOSES: 1. Right lower lobe bronchopneumonia. 2. Intractable nausea and vomiting. 3. Peptic ulcer disease. CONSULTATIONS: None. PROCEDURES: 1. Abdominal ultrasound showed negative exam. 2. Chest x-ray done on admission showed negative exam. 3. Echocardiogram Doppler showed ejection fraction of 55% with no pericardial effusion seen. Aortic appears normal in visualized segment. Normal diastolic function. HOSPITAL COURSE: This is a 53-year-old, male with a history of peptic ulcer disease and GERD who presented to the emergency department complaining of fever, chills, nausea, and vomiting. He was recently discharged from the emergency department with a diagnosis of pneumonia. He was sent home on antibiotics but, unfortunately, he was not able to keep anything down so he was admitted to the hospital for further management. He was placed on Zosyn. He started feeling better. For peptic ulcer disease, we started Protonix and also we added sucralfate to his current treatment. He started feeling better. The day of discharge, the patient was feeling fine. Not requiring any oxygen supplementation. Able to walk around without getting short of breath. At this point, we are going to discharge this patient home. We will provide oral antibiotics as well as Protonix. DISCHARGE PHYSICAL EXAMINATION: Vital Signs: Temperature 98.3 degrees, heart rate 62, respiratory rate 18, blood pressure 147/74, O2 saturation 100% on room air. General Examination: This is a 53-year-old, -Iranian male, lying in bed, in no acute distress. Cardiovascular Examination: S1 and S2 heard. No murmurs, gallops, or rubs. Regular rate and rhythm. Respiratory Examination: Clear bilaterally to auscultation. No work of breathing or using accessory muscles. Abdomen: Soft, nontender to palpation. Bowel sounds present. No organomegaly. Extremities: No clubbing, cyanosis, or edema. Peripheral pulses present in both legs. Neurological Examination: The patient is alert and oriented x3. Moves 4 extremities. DISCHARGE DISPOSITION: Home to self-care. LIST OF MEDICATIONS: 1. Levofloxacin 750 mg 1 tablet p.o. daily for 10 days. 2. Pantoprazole 40 mg 1 tablet p.o. daily. 3. Culturelle 1 tablet p.o. b.i.d. for a couple weeks. 4. Zofran ODT 4 mg 1 tablet p.o. every 4 hours as needed for nausea. 5. Gabapentin 300 mg 1 tablet p.o. daily as needed. 6. Ventolin 2 puff inhalation every 4 hours as needed. 7. Zyrtec 10 mg 1 tablet p.o. daily. 8. Flexeril 10 mg 1 tablet p.o. 2 times per day. 9. Flonase 1 spray intranasal daily. Time discharging this patient, 25 minutes. cc: MD Karan Delcid MD
== END 2019-10-09 09:56 | disposition home or self-care (01) | DRG 195 ==
LOC: ED 18:51 → EDIPHOLD 10-07 02:37 → SUATTDRO 10-07 02:37 → 1N 10-07 11:27
PROVIDERS: ADMIT Emergency Medicine; ATTEND Internal Medicine